=== PATIENT | male | born 1950 | race Caucasian/White ===

== ENCOUNTER 2017-12-19 12:01 | Emergency (ER) | payer MEDICARE, OTHER ==
--- NOTE | 2017-12-19 14:04 | RAD ---
FOUR VIEWS RIGHT KNEE: HISTORY: Pain. Evaluate for DVT. COMPARISON: None. FINDINGS: There is a suprapatellar effusion. Right knee arthroplasty is noted. There appears to be a fracture involving the medial tibial component. IMPRESSION: There appears to be a fracture involving the proximal medial tibial plateau. There is associated adan nt effusion. POS: [facility]
--- NOTE | 2017-12-19 15:12 | ULT ---
RIGHT LOWER EXTREMITY VENOUS DUPLEX ULTRASOUND INCLUDING COLOR AND SPECTRAL DOPPLER IMAGING: HISTORY: A 67-year-old male with a history of right lower extremity pain and edema status post right total kne e replacement. FINDINGS: Exam performed from groin to ankle including visualized greater saphenous, common femoral, superficia l femoral, profunda femoral, popliteal, trifurcation, and posterior tibial vein regions. Phasic flow noted at all levels with normal compressibility and normal augmentation. No intraluminal thrombus. IMPRESSION: No evidence for deep venous thrombosis. POS: [facility]
== END 2017-12-19 16:24 | disposition home or self-care (01) ==
LOC: ERS 12:01
DX: S82.141A Displaced bicondylar fracture of right tibia, initial encounter for closed fracture (principal); I10 Essential (primary) hypertension; E78.5 Hyperlipidemia, unspecified; Z87.891 Personal history of nicotine dependence; Z79.899 Other long term (current) drug therapy; X58.XXXA Exposure to other specified factors, initial encounter